=== PATIENT | male | born 1990 | race Hispanic/Latino ===

== ENCOUNTER 2018-10-13 18:33 | Emergency (ER) | payer SELFPAY ==
[2018-10-13] MEDS ORDERED: Lidocaine 1% w/Epinephrine 1:100K 20 ML VIAL ONE (20:00)
--- NOTE | 2018-10-13 20:31 | RAD ---
LEFT INDEX FINGER THREE VIEWS: HISTORY: A 28-year-old male with a history of a finger laceration from a utility knife. FINDINGS: There appears to be minimal soft tissue swelling of the index finger. No fracture, dislocation, or o ther significant acute osseous abnormality. IMPRESSION: Minimal soft tissue swelling without fracture or other acute osseous abnormality. POS: RRE
== END 2018-10-13 21:57 | disposition home or self-care (01) ==
LOC: ERS 18:33
DX: S61.211A Laceration without foreign body of left index finger without damage to nail, initial encounter (principal); F17.210 Nicotine dependence, cigarettes, uncomplicated; J45.909 Unspecified asthma, uncomplicated; W26.0XXA Contact with knife, initial encounter
CPT/HCPCS: 12001; J2001

== ENCOUNTER 2020-10-25 10:32 | Emergency (ER) | payer SELFPAY ==
[2020-10-25] MEDS ORDERED: Ketorolac Tromethamine 30 MG/ML VIAL ONE (10:43)
--- NOTE | 2020-10-25 11:26 | RAD ---
RIGHT HAND 3 VIEWS: HISTORY: Hand pain. FINDINGS: Carpals, metacarpals, and phalanges appear intact. No acute fracture identified. There is a tiny fragment seen at the base of the proximal phalanx of the third digit at the MCP joint along the radial surface. This could potentially represent a small avulsion fragment. Recommend cl inical correlation regarding tenderness at this site. IMPRESSION: 1. Question tiny avulsion fragment at the base of the proximal phalanx of the third digit. 2. Otherwise, no acute finding. POS: AGW
== END 2020-10-25 13:25 | disposition home or self-care (01) ==
LOC: ERS 10:32
DX: S62.312A Displaced fracture of base of third metacarpal bone, right hand, initial encounter for closed fracture (principal); W22.8XXA Striking against or struck by other objects, initial encounter; J45.909 Unspecified asthma, uncomplicated; F17.210 Nicotine dependence, cigarettes, uncomplicated
CPT/HCPCS: 26600; 96372; J1885